=== PATIENT | female | born 2000 | race Hispanic/Latino ===

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

== ENCOUNTER 2021-03-05 02:29 | Inpatient (IN) | payer MEDICAID ==
[2021-03-05] VITALS (16 sets, daily range): BP systolic 94–141; BP diastolic 52–85
[~2021-03-05] VITALS: Ht 160 cm; Wt 74.1 kg
[2021-03-05] MEDS ORDERED: D5 LR IV SOLUTION 1,000 ML IV ONE (02:45)
[2021-03-05] MEDS ORDERED: LIDOCAINE 1% INJ 20 ML 20 ML VIAL INJ PRN (03:15)
[2021-03-05] MEDS ORDERED: MINERAL OIL CONCENTRATE 99.9% 15 ML UDC TOP PRN (03:15)
[2021-03-05] MEDS ORDERED: D5 LR IV SOLUTION 1,000 ML IV SCH (03:15)
[2021-03-05 03:34] LABS: BASOPHILS % (AUTO) 1 % (0-10); EOSINOPHILS % (AUTO) 1 % (0-10); HEMATOCRIT 34 % (35-52); HEMOGLOBIN 11.1 g/dL (11.5-16.0); LYMPHOCYTES # (AUTO) 2.7 10^3/uL (1.0-4.0); LYMPHOCYTES % (AUTO) 39 % (12-44); MEAN CORPUSCULAR HEMOGLOBIN 30 pg (25-34); MEAN CORPUSCULAR HGB CONC 33 g/dL (32-36); MEAN CORPUSCULAR VOLUME 91 fL (80-99); MEAN PLATELET VOLUME 9.6 fL (9.0-12.2); MONOCYTES # (AUTO) 0.5 10^3/uL (0.0-1.0); MONOCYTES % (AUTO) 7 % (0-12); NEUTROPHILS # (AUTO) 3.6 10^3/uL (1.8-7.8); NEUTROPHILS % (AUTO) 51 % (42-75); PLATELET COUNT 338 10^3/uL (130-400)
[2021-03-05] MEDS ORDERED: OXYTOCIN PRE-MIX DRIP 500 ML IV ONE ×2 (03:56→06:49)
[2021-03-05] MEDS ORDERED: LIDOCAINE/EPI 2% 1:200,00 (XYLOCAINE) 20 ML VIAL ONE (05:25)
[2021-03-05] MEDS ORDERED: LIDOCAINE/EPI 2% 1:200,00 (XYLOCAINE) 20 ML VIAL INJ ONE (05:45)
[2021-03-05] MEDS ORDERED: CATHETER FLUSH 10 ML SYR IV SCH ×2 (06:00→14:00)
[2021-03-05] MEDS: OXYTOCIN PRE-MIX DRIP 500 ML IV SCH ×2 (06:21→06:57)
--- NOTE | 2021-03-05 06:40 | History & Physical-OB ---
OB - Chief Complaint & HPI Date/Time Date of Admission: Date of Admission: March 05, 2021 at 02:51 Date seen by a Provider: March 05, 2021 Time Seen by a Provider: 06:02 Chief Complaint/History OB-Reason for Admission/Chief: Onset of Labor Hx : 2 Hx Para: 1 Expected Date of Delivery: March 06, 2021 Gestational Age in Weeks: 39 Gestational Age in Days: 6 Allergies and Home Medications Allergies Coded Allergies: No Known Drug Allergies (Unverified , 09/22/13) Home Medications Ondansetron Hcl 4 Mg Tab, 4 MG PO Q4H Prescribed by: NORRIS BARRAZA on 09/22/132010 Patient Home Medication List Home Medication List Reviewed: Yes OB - History Hx of Present Care: Yes Ultrasounds: Normal mid trimester US Obstetrical Complications: None Medical Complications: None Information Induced Hypertension: No Maternal Gestational Diabetes: No Hemorrhage: No Obstetrical History Hx : 2 Hx Para: 1 Hx # Term Pregnancies: 1 Number of Living Children: 1 Hx Total # of Abortions (Spona: 0 Delivery History Hx Blood Disorders: No Patient Past Medical History N/A Social History/Family History Alcohol Use: Denies Use Recreational Drug Use: No 2nd Hand Smoke Exposure: No Immunizations Hepatitis A: Yes Hepatitis B: Yes Tetanus Booster (TDap): Less than 5yrs Rubella: unknown RPR/VDRL: Negative GBS Status: Negative HBsAG: Negative OB - Admission Exam Physical Exam Vitals: Vital Signs 03/05/21 03/05/21 03:28 05:30 Temp 36.5 Pulse 78 Resp 18 B/P (MAP) 138/75 (96) Pulse Ox 99 O2 Delivery Room Air HEENT: NCAT Heart: Rhythm Normal Lungs: Clear Abdomen: Gravid Extremities: Normal Reflexes: Normal Cervical Dilatation: 8cm Effacement: 100% Station: +1 Membranes: Ruptured Amniotic Fluid: Clear Heart Rate: 140's Accelerations: Accelerations Present Decelerations: Early Decelerations Short Term Variability: Present Crop Research Scientist Variability: Average (6-25) Contractions on Admission: < 5 Minutes Apart Intensity: Firm Labs Laboratory Tests Test 03/05/21 03:20 Range/Units White Blood Count 7.0 4.3-11.0 10^3/uL Red Blood Count 3.76 L 3.80-5.11 10^6/uL Hemoglobin 11.1 L 11.5-16.0 g/dL Hematocrit 34 L 35-52 % Mean Corpuscular Volume 91 80-99 fL Mean Corpuscular Hemoglobin 30 25-34 pg Mean Corpuscular Hemoglobin Concent 33 32-36 g/dL Red Cell Distribution Width 13.5 10.0-14.5 % Platelet Count 338 130-400 10^3/uL Mean Platelet Volume 9.6 9.0-12.2 fL Immature Granulocyte % (Auto) 2 % Neutrophils (%) (Auto) 51 42-75 % Lymphocytes (%) (Auto) 39 12-44 % Monocytes (%) (Auto) 7 0-12 % Eosinophils (%) (Auto) 1 0-10 % Basophils (%) (Auto) 1 0-10 % Neutrophils # (Auto) 3.6 1.8-7.8 10^3/uL Lymphocytes # (Auto) 2.7 1.0-4.0 10^3/uL Monocytes # (Auto) 0.5 0.0-1.0 10^3/uL Eosinophils # (Auto) 0.0 0.0-0.3 10^3/uL Basophils # (Auto) 0.0 0.0-0.1 10^3/uL Immature Granulocyte # (Auto) 0.1 0.0-0.1 10^3/uL OB - Assessment/Plan/Diagnosis Assessment Assessment: active labor Admission Dx Active Labor SROM Third Trimester 39 week gestation Admission Status: Inpatient Order (span 2 midnights) Reason for Inpatient Admission: Labor Plan Other Plan 20 yo @ 39.6 wga here in active labor Plan - Expectant Management - Desires Natural childbirth - Desiree Patient Copy Copies To 1: CHINA CADENA MD, HOLLY R MD March 05, 2021 06:40
--- NOTE | 2021-03-05 06:45 | OB Labor & Delivery Record ---
Vag Delivery Note Vag Delivery Note Date of Delivery: 03/05/21 Preoperative Diagnosis: Deisy Siddiqui is a (20 /Para 2 / 1,Gestational Age (wks)39.6 wga here in active labor Postoperative Diagnosis: Same Surgeon: SURENDRA SALDAÑA Strip Cutter: None Anesthesia: None Delivery Type: @ 0617 Findings: Viable Male infant, apgars 8/9, weight 7#9, 3432 grams Lacerations: None Intact placenta with 3 vessel cord. No nuchal cord, body cord or shoulder dystocia Estimated Blood Loss: 125 ml Complications: None Condition: Stable Description of Procedure: The patient is a 20 year old female who presented in active labor. She was admitted and informed consent was obtained. Her labor course was unremarkable. She progressed to complete dilatation and began to push. She was then set up for delivery. The 's head was delivered atraumatically in the KRYSTYNA position. The shoulders and remainder of the 's body were then delivered without difficulty. Upon delivery, the head was held below the level of the perineum and the mouth and nares were bulb suctioned. The cord was doubly clamped and cut by FOB after 2 min delay and the infant was attended to by the pediatric staff. An intact placenta with 3-vessel cord delivered via Brandin and there was found to be minimal bleeding.~ Vigorous fundal massage was performed and the fundus was found to be firm. IV oxytocin was given. Examination of the vagina and perineum revealed no laceration that require repair. Following the repair, sponge, instrument and needle counts were correct. Mom and baby were both in stable condition in the labor suite. Vitals - Labs Vital Signs - I&O Vital Signs Date Time Temp Pulse Resp B/P (MAP) Pulse Ox O2 Delivery O2 Flow Rate FiO2 03/05/21 05:30 78 18 138/75 (96) 99 03/05/21 04:30 77 18 128/85 (99) 99 03/05/21 03:28 36.5 71 18 98 Room Air 03/05/21 03:19 36.5 71 18 98 Room Air 03/05/21 03:00 36.5 71 18 141/85 (103) 98 Labs Laboratory Tests 03/05/21 03:20: White Blood Count 7.0, Red Blood Count 3.76L, Hemoglobin 11.1L, Hematocrit 34L, Mean Corpuscular Volume 91, Mean Corpuscular Hemoglobin 30, Mean Corpuscular Hemoglobin Concent 33, Red Cell Distribution Width 13.5, Platelet Count 338, Mean Platelet Volume 9.6, Immature Granulocyte % (Auto) 2, Neutrophils (%) (Auto) 51, Lymphocytes (%) (Auto) 39, Monocytes (%) (Auto) 7, Eosinophils (%) (Auto) 1, Basophils (%) (Auto) 1, Neutrophils # (Auto) 3.6, Lymphocytes # (Auto) 2.7, Monocytes # (Auto) 0.5, Eosinophils # (Auto) 0.0, Basophils # (Auto) 0.0, Immature Granulocyte # (Auto) 0.1 SURENDRA SALDAÑA MD March 05, 2021 06:45
[2021-03-05] MEDS ORDERED: WITCH HAZEL(TUCKS) 40 EA JAR TOP PRN (07:00)
[2021-03-05] MEDS ORDERED: TETANUS,DIPTH,PERTUSS P/F (BOOSTRIX) 0.5 ML VIAL IM ONE (07:00)
[2021-03-05] MEDS ORDERED: BENZOCAINE/MENTHOL (DERMOPLAST) 56 ML CAN TP PRN (07:00)
[2021-03-05] MEDS ORDERED: MEASLES,MUMPS,RUBELLA 1 EA INJ SQ ONE (07:00)
[2021-03-05] MEDS ORDERED: IBUPROFEN 600 MG (MOTRIN) TAB PO ONE (07:45)
[2021-03-05] MEDS: IBUPROFEN 600 MG (MOTRIN) TAB PO SCH ×2 (13:18→18:37)
[2021-03-05] MEDS: DOCUSATE SODIUM 100 MG (COLACE) CAP PO SCH ×2 (13:18→20:25)
[2021-03-05] MEDS: ACETAMINOPHEN 500 MG TAB (TYLENOL) PO SCH (20:25)
[2021-03-06] VITALS: BP 108/55
[2021-03-06] MEDS: IBUPROFEN 600 MG (MOTRIN) TAB PO SCH ×3 (01:00→12:40)
[2021-03-06 04:32] VITALS: BP 109/62
[2021-03-06] MEDS: ACETAMINOPHEN 500 MG TAB (TYLENOL) PO SCH (06:17)
[2021-03-06 07:18] LABS: BASOPHILS % (AUTO) 1 % (0-10); EOSINOPHILS # (AUTO) 0.1 10^3/uL (0.0-0.3); EOSINOPHILS % (AUTO) 1 % (0-10); HEMATOCRIT 30 % (35-52); HEMOGLOBIN 9.9 g/dL (11.5-16.0); LYMPHOCYTES # (AUTO) 3.1 10^3/uL (1.0-4.0); LYMPHOCYTES % (AUTO) 36 % (12-44); MEAN CORPUSCULAR HEMOGLOBIN 30 pg (25-34); MEAN CORPUSCULAR HGB CONC 33 g/dL (32-36); MEAN CORPUSCULAR VOLUME 92 fL (80-99); MONOCYTES # (AUTO) 0.8 10^3/uL (0.0-1.0); MONOCYTES % (AUTO) 10 % (0-12); NEUTROPHILS # (AUTO) 4.3 10^3/uL (1.8-7.8); NEUTROPHILS % (AUTO) 50 % (42-75); PLATELET COUNT 275 10^3/uL (130-400); WHITE BLOOD COUNT 8.5 10^3/uL (4.3-11.0)
[2021-03-06 09:25] VITALS: BP 112/57
[2021-03-06] MEDS: DOCUSATE SODIUM 100 MG (COLACE) CAP PO SCH (09:33)
[2021-03-06 10:28] VITALS: BP 112/57
--- NOTE | 2021-03-06 10:33 | Discharge Summary ---
Diagnosis/Chief Complaint Date of Admission March 05, 2021 at 02:51 Date of Discharge Discharge Summary-Simple/Stand Discharge Physical Examination Allergies: Coded Allergies: No Known Drug Allergies (Unverified , 09/22/13) Vitals & I&Os Vital Sign - Last 12Hours Date Time Temp Pulse Resp B/P (MAP) Pulse Ox O2 Delivery O2 Flow Rate FiO2 03/06/21 09:25 36.5 61 16 112/57 (75) 98 Room Air Hospital Course See final discharge diagnosis. Discharge Instructions to patient/family Please see electronic discharge instructions given to patient. Discharge Medications Reviewed and agree with Discharge Medication list on patient's Discharge Instruction sheet SURENDRA SALDAÑA MD March 06, 2021 10:33
[2021-03-06] MEDS ORDERED: DCS100C PO (10:34)
[2021-03-06] MEDS ORDERED: IBUP-844 PO (10:34)
--- NOTE | 2021-03-06 10:46 | Discharge Summary ---
Discharge Inst-[facility] Reconcile Patient Problems Problems Reviewed?: Yes Depart Medications New, Converted or Re-Newed RX: RX on Chart Follow Up/Instructions Goal/Follow Up: [address] Cadena Activity Activity: Activity as Tolerated Nothing Inside Vagina: No Douching, No Tampons Diet Discharge Diet: No Restrictions Symptoms to Report to : Bleeding Excessive, Fever Over 101 Degrees F, Shortness of Breath Copies To 1: CHINA CADENA MD, HOLLY R MD March 06, 2021 10:46
== END 2021-03-06 13:05 | disposition home or self-care (01) | DRG 807 ==
LOC: WSo 02:29 → LDRP 02:30 → WSo 02:50 → LDRP 02:51 → WS 10:40
PROVIDERS: ADMIT Family Medicine; ATTEND Family Medicine
PROC: 10E0XZZ Delivery of Products of Conception, External Approach (ICD-10-PCS; principal; 2021-03-05)
DX: O80 Encounter for full-term uncomplicated delivery (principal); Z37.0 Single live birth; Z3A.39 39 weeks gestation of pregnancy
CPT/HCPCS: 36415; 85025; 86780; 86850; 86900; 86901; 99212

== ENCOUNTER 2023-05-22 21:53 | Emergency (ER) | payer MEDICAID ==
[~2023-05-22] VITALS: Ht 152.4 cm; Wt 72.6 kg
[~2023-05-22 21:53] MED LIST changes: +DOCU-239 PO; +IBUP-844 PO
[2023-05-22 21:57] VITALS: BP 133/85
[2023-05-22 22:16] LABS: BILIRUBIN,URINE NEGATIVE (NEGATIVE); CLARITY,URINE SL CLOUDY; COLOR,URINE YELLOW; GLUCOSE, URINE (UA) NEGATIVE (NEGATIVE); KETONES,URINE TRACE (NEGATIVE); LEUKOCYTE ESTERASE ,URINE 1+ (NEGATIVE); NITRITE,URINE NEGATIVE (NEGATIVE); PH,URINE 6.5 (5-9); PROTEIN,URINE TRACE (NEGATIVE)
--- NOTE | 2023-05-22 22:16 | ED GU-Female ---
General Chief Complaint: Skin/Wound Problems Stated Complaint: INFECTION IN GROIN AREA Source: patient Exam Limitations: no limitations History of Present Illness Date Seen by Provider: May 22, 2023 Time Seen by Provider: 22:06 Initial Comments Patient is a 22-year-old female who presents to the ED for vaginal itching, vaginal redness and swelling and a rash around the groin. Symptoms started about 2 weeks ago. She states she was seen at [facility] and finished a round of Keflex this past Sunday. She took the antibiotic for 7 days. She states she still having the rash around her groin. She reports some vaginal itching and white vaginal discharge without odor. Not necessarily concern for sexual transmitted affection but was okay to get a swab. She reports burning with urination and itching with urination. Mild pain with sexual intercourse. She is currently 36 weeks . No vaginal bleeding or abdominal pain. She denies fever, chills, nausea, vomiting, diarrhea. Patient did use vaginal itch cream vaginal still without much improvement. Allergies and Home Medications Allergies Coded Allergies: No Known Drug Allergies (Unverified , 09/22/13) Patient Home Medication List Home Medication List Reviewed: Yes Clotrimazole (Clotrimazole) 1 % Cream..g., 15 GM TP BID Prescribed by: ELISSA CABRERA on 05/22/232232 Docusate Sodium (Dok) 100 Mg Capsule, 100 MG PO BID Prescribed by: SURENDRA SALDAÑA on 03/06/21 1034 Ibuprofen (Ibu) 600 Mg Tablet, 600 MG PO Q6HR Prescribed by: SURENDRA SALDAÑA on 03/06/21 1034 Review of Systems Review of Systems Constitutional: No chills, No diaphoresis, No malaise, No weakness EENTM: No hearing loss, No ear pain, No blurred vision Respiratory: No cough, No dyspnea on exertion Cardiovascular: No chest pain Gastrointestinal: No abdominal pain, No diarrhea, No nausea, No vomiting Genitourinary: burning, discharge; denies dysuria Musculoskeletal: No back pain, No joint pain Skin: No change in color, No change in hair/nails All Other Systemes Reviewed Negative Unless Noted: Yes Past Hrolnho-Raortq-Tbfwgg Hx Immunizations Up To Date Tetanus Booster (TDap): Less than 5yrs Past Medical History Reproductive Disorders: No Physical Exam Vital Signs Vital Signs - First Documented 05/22/23 21:57 Temp 36.0 Pulse 88 Resp 17 B/P (MAP) 133/85 (101) O2 Delivery Room Air Capillary Refill : Height, Weight, BMI Height: '" Weight: 120lbs. oz. 54.782103pj; 28.94 BMI Method:Stated General Appearance: WD/WN, no apparent distress HEENT: PERRL/EOMI, normal ENT inspection, TMs normal, pharynx normal Neck: non-tender, full range of motion, supple, normal inspection Cardiovascular: regular rate, rhythm, no edema, no gallop, no JVD Respiratory: chest non-tender, lungs clear, normal breath sounds, no respiratory distress, no accessory muscle use Gastrointestinal: normal bowel sounds, non tender, soft, no organomegaly Genital/Rectal: other (Erythematous papular rash to right groin. Mild purulent drainage from the vaginal area without odor. Vaginal swelling.) Back: normal inspection, no CVA tenderness, no vertebral tenderness Extremities: normal range of motion, non-tender, normal inspection, no pedal edema Neurologic/Psychiatric: hotel registration clerk II-XII nml as tested, no motor/sensory deficits, alert, normal mood/affect, oriented x 3 Skin: warm/dry Progress/Results/Core Measures Suspected Sepsis SIRS Temperature: Pulse: Respiratory Rate: Blood Pressure / Mean: Results/Orders Lab Results Laboratory Tests Test 05/22/23 22:08 Range/Units Urine Color YELLOW Urine Clarity SL CLOUDY Urine pH 6.5 5-9 Urine Specific Daykin 1.015 L 1.016-1.022 Urine Protein TRACE H NEGATIVE Urine Glucose (UA) NEGATIVE NEGATIVE Urine Ketones TRACE H NEGATIVE Urine Nitrite NEGATIVE NEGATIVE Urine Bilirubin NEGATIVE NEGATIVE Urine Urobilinogen 1.0 < = 1.0 MG/DL Urine Leukocyte Esterase 1+ H NEGATIVE Urine RBC (Auto) 2+ H NEGATIVE Urine RBC 5-10 H /HPF Urine WBC 0-2 /HPF Urine Squamous Epithelial Cells 5-10 /HPF Urine Crystals PRESENT H /LPF Urine Calcium Oxalate Crystals FEW H /LPF Urine Bacteria TRACE /HPF Urine Casts NONE /LPF Urine Mucus SMALL H /LPF Urine Culture Indicated NO My Orders Orders - DAVID MEJIA Ua Culture If Indicated (05/22/23 22:03) Wet Prep (7/25/23 22:03) Neisseria Gonorrhea Swab (05/22/23 22:04) Chlamydia Trachomatis Swab (05/22/23 22:04) Vital Signs/I&O Capillary Refill : Departure Communication (PCP) Reviewed previous ER visits, H&P, lab testing. Differential diagnoses UTI, vaginal yeast, STD, chaffing. Currently 36 weeks . No vaginal bleeding. She reports burning with intercourse and vaginal itching. On exam she does have some erythematous papules to the right groin, inner thigh with red bumps to the left inner thigh. Concern for yeast versus chaffing. Very minimal vaginal discharge. Performed pelvic exam with swabs. Chlamydia and gonorrhea currently pending. Microbiology was negative for trichomonas, clue cells or yeast. Urinalysis questionable for UTI but no culture was recommended. Leukocytes +1, red blood cells noted. She is sexually active with 1 partner. She does not want to be treated prophylactically for STD. She has no abdominal tenderness. cardiac activity 145 bpm. She does not appear in acute distress. Will discharge with clotrimazole topical if related to yeast as some of the presentation is. Other etiologies would be chaffing. discussed Monistat chaffing cream as well. Avoid any fragrance or soaps. She recently finished Keflex with no improvement. Unlikely UTI but recommend recheck with your PCP. Concerning for yeast. Discussed hormonal changes during her . No odor or clue cells suggesting bacterial vaginosis. Recommend following up with your tractor operator laser leveling in the next 2 or 3 days for reevaluation. If any worsening symptoms return back to ED. Impression Primary Impression: Vaginal itching Disposition: 01 HOME, SELF-CARE Condition: Stable Departure-Patient Inst. Decision time for Depature: 22:29 Referrals: CHINA CADENA MD (PCP/Family) Primary Care Physician Patient Instructions: Vulvar itching Add. Discharge Instructions: Recommend taking topical antifungal. May consider getting Monistat care chafing relief. Recommend following up with your tractor operator laser leveling for further evaluation. All discharge instructions reviewed with patient and/or family. Voiced understanding. Scripts Clotrimazole (Clotrimazole) 1 % Cream..g. 15 GM TP BID, #1 EA 1 Refill Prov: DAVID MEJIA 05/22/23 DAVID MEJIA May 22, 2023 22:16
[2023-05-22] MEDS ORDERED: CLOT15CR28 TP (22:33)
[2023-05-22 22:52] LABS: BACTERIA,URINE TRACE /HPF; WBC,URINE 0-2 /HPF
[2023-05-22 22:53] LABS: CALCIUM OXALATE CRYSTALS,UR FEW /LPF
== END 2023-05-22 23:08 | disposition home or self-care (01) ==
LOC: EDUNIT# 21:53 → ER 21:54
DX: O23.593 Infection of other part of genital tract in pregnancy, third trimester (principal); N89.8 Other specified noninflammatory disorders of vagina; L53.9 Erythematous condition, unspecified; Z3A.36 36 weeks gestation of pregnancy; Z28.310 Unvaccinated for COVID-19
CPT/HCPCS: 36415; 81000; 87210; 87491; 87591; 99284

== ENCOUNTER 2023-06-07 06:27 | Inpatient (IN) | payer MEDICAID ==
[2023-06-07] VITALS (27 sets, daily range): BP systolic 98–150; BP diastolic 55–79
[~2023-06-07] VITALS: Ht 152.4 cm; Wt 78.4 kg
[~2023-06-07 06:27] MED LIST changes: +CLOT15CR28 TP
--- OUTSIDE RECORDS SUMMARY | 2023-06-07 06:30 | XMS REPORT | Clinical Summary ---
Author Author [facility] Organization [facility] Address Unknown Phone Unavailable Care Team Providers Care Respiratory Physician Name Role Phone No Pcp, Na PCP Unavailable Source Comments Some departments are not documenting in the electronic medical record. If you d o not see the information that you expected, contact Release of Information in [facility] [employer] Information Management department at [phone] for further assistan ce in locating additional records.[facility] Allergies No known active allergies Medications End Date Status Medication Sig Dispensed Refills Start Date Active VIT Take by 0 CALC,IRON,FOLIC ( mouth. VITAMIN PO) Active acetaminophen (TYLENOL) Take 325 mg 0 325 mg tablet by mouth every 4 hours as needed for Pain. Active ibuprofen (ADVIL) 200 mg Take 200 mg 0 tablet by mouth every 6 hours as needed for Pain. Take with food. Active simethicone (MYLICON) 80 Chew 1 tablet 30 tablet 0 mg chew tablet by mouth 8 every 6 hours as needed for Flatulence. Active lanolin (FPK-Y-NCBQDQ) Apply 56 g 3 topical cream topically to 8 affected area as Needed. Active docusate (COLACE) 100 mg Take 1 180 capsule 3 0 capsule capsule by 8 mouth twice daily. Active Problems Problem Noted Date Diagnosed Date Spontaneous vaginal delivery 01/09/2018 Resolved Problems Resolved Date Problem Noted Date Diagnosed Date 01/09/2018 01/06/2018 01/09/2018 Anomaly of heart affecting curtis , 11/09/2017 antepartum Last Assessment & Plan: Formatting of t his note might be different from the original. I saw Deisy Siddiqui for a echocardiogram. 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 The ventricular septal defect connecting th e LV and RV outflow chamber appears unobstructed. I spent 30 minutes with Deisy Siddiqui and her mother di scussing the initial results of the echocardiogram. I told Deisy Siddiqui that some of the results may be modifie d by the more detailed review of the study and the pr eparation of the final report. Based on my initial asses sment I gave Deisy Siddiqui the following recommenda tions and guidance: 1. Delivery: at term (>38 weeks) at 2. Post- care:NICU observation, pr obably will not require PGE1 or other medical intervent ion immediately after 3. Anticipated surgery or intervention: will ultimately need single ventricle repair (Fontan) 4. Follow-up: 2-3 weeks to reassess the pulmonary arteries. Immunizations Name Administration Dates Next Due DTaP Vaccine 06/22/2003, 12/14/1999, , 01/17/1999, 1998 Flu Vaccine =>6 Months 01/07/2018 (Deferred: Patie nt Refused) Quadrivalent PF HIB Vaccine 12/14/1999, 02/21/1999, , 1998 HPV Vaccine 4 Valent IM 11/26/2013, 12/24/2012 (Gardasil) Hepatitis A vaccine Ped 07/28/2014, 11/26/2013 Adol 2 dose IM Hepatitis B Vaccine 01/17/1999, 1998, 08/1998 Ped/Adol 3 Dose IM IPV 03/11/2003, 02/21/1999, , 1998 MMR Vaccine 03/11/2003, 08/15/1999 Meningococcal Conjug 11/26/2013, 12/24/2012 Vaccine IM (MenACWY-D)(Menactra) Rotavirus vaccine 02/21/1999, 01/17/1999, monovalent, 2 dose regimen (Rotarix) Tdap Vaccine 11/19/2017, 01/31/2010 Varicella Vaccine Live 01/31/2010, 07/17/2007, Family History Medical History Relation Name Comments Heart defect Brother "Holes in heart madalyn t closed on their own" Heart Surgery Father Transplant due to C hagras disease Cancer-Uterine Maternal Grandmother Relation Name Status Comments Brother Father Maternal Grandmother Social History Date Tobacco Use Types Packs/Day Years Used Smoking Tobacco: Never Smokeless Tobacco: Never Date Recorded Sex and Gender Information Value Sex Assigned at Not on file Gender Identity Not on file Sexual Orientation Not on file Obstetrics History Para Term AB IAB SAB Ectopic Multiple Living Live B irths 1 1 1 1 0 1 1 2 Date GA Total Labor Labor/2nd/3rd Weight Sex Delivery Anes PTL Analy A1 A5 Name Clin Outcome SAB SAB 01/07/2018 39w0d M Vag-Spont None N Living 8 9 SIDDIQUI,BABY BOY Kelly Grady MD Term Complications: None Delivery Location: [facility]) Last Filed Vital Signs Reading Time Taken Comments Vital Sign 108/62 01/09/2018 8:38 AM CDT Blood Pressure 68 01/09/2018 8:38 AM CDT Pulse 36.6 C (97.9 F) 01/09/2018 8:38 AM CDT Temperature - - Respiratory Rate 100% 01/09/2018 8:38 AM CDT Oxygen Saturation - - Inhaled Oxygen Concentration 72.1 kg (159 lb) 01/06/2018 10:36 PM CDT Weight 152.4 cm (5') 01/06/2018 10:36 PM CDT Height 31.05 01/06/2018 10:36 PM CDT Body Mass Index Plan of Treatment Health Maintenance Due Date Last Done Comments COVID-19 VACCINE (#1) 01/05/1999 HEPATITIS C SCREENING 2016 PHYSICAL (COMPREHENSIVE) 2016 EXAM CHLAMYDIA SCREENING 18-24 11/19/2018 11/19/2017 YEARS CERVICAL CANCER SCREENING 2019 DEPRESSION SCREENING 10/29/2022 INFLUENZA VACCINE (#1) 2023 DTAP/TDAP VACCINES (8 - 11/19/2027 11/19/2017, Td or Tdap) 01/31/2010, 06/22/2003, Additional history exists HPV VACCINES Completed 11/26/2013, 12/24/2012 HIV SCREENING Completed 11/08/2017 PNEUMOCOCCAL VACCINE 0-64 Aged Out No longer el igible based on patient's age to YRS complete this topic Results Not on filefrom Last 3 Months Insurance Type Payer Benefit Subscriber ID Effective Phone Address Plan / Dates Group Indemnity [facility] [id number] 2020-P [phone] CHOICE/CHO resent ICE PLUS Advance Directives Date Inactivated Comments Code Status Date Activated 01/06/2018 11:29 PM Full Code 01/06/2018 10:57 PM Comments Question Answer Provider has No, discussion not necessar y based on Dx discussed Code Status w/Patient or Family? Care Teams Start Date End Date Respiratory Physician Relationship Specialty 10/05/17 No Pcp, Na PCP - General
[2023-06-07] MEDS ORDERED: D5 LR 1,000 ML IV SOLN 1,000 ML IV SCH (06:45)
[2023-06-07] MEDS ORDERED: MINERAL OIL 30 ML UDC TOP PRN (06:45)
--- NOTE | 2023-06-07 06:45 | History & Physical-OB ---
OB - Chief Complaint & HPI Date/Time Date of Admission: Date of Admission: Jun 07, 2023 at 06:27 Date seen by a Provider: Jun 07, 2023 Time Seen by a Provider: 06:50 Chief Complaint/History OB-Reason for Admission/Chief: Induction of Labor Hx : 3 Hx Para: 2 Expected Date of Delivery: Jun 09, 2023 Gestational Age in Weeks: 39 Gestational Age in Days: 5 Admission Nurse Assessment Rev: Yes History of Labs GBS negative Allergies and Home Medications Allergies Coded Allergies: No Known Drug Allergies (Unverified , 09/22/13) Patient Home Medication List Home Medication List Reviewed: Yes Clotrimazole (Clotrimazole) 1 % Cream..g., 15 GM TP BID Prescribed by: ELISSA CABRERA on 05/22/232232 Docusate Sodium (Dok) 100 Mg Capsule, 100 MG PO BID Prescribed by: SURENDRA SALDAÑA on 03/06/21 1034 Ibuprofen (Ibu) 600 Mg Tablet, 600 MG PO Q6HR Prescribed by: SURENDRA SALDAÑA on 03/06/21 1034 OB - History Hx of Present Care: Yes Ultrasounds: Normal mid trimester US Obstetrical Complications: None Medical Complications: None Delivery History Hx Blood Disorders: No Patient Past Medical History N/A Social History/Family History 2nd Hand Smoke Exposure: No Immunizations Hepatitis A: Yes Hepatitis B: Yes Tetanus Booster (TDap): Less than 5yrs OB - Admission Exam Physical Exam HEENT: Moist Membranes Heart: Rhythm Normal Lungs: Clear Abdomen: Gravid Cervical Dilatation: 2cm Effacement: 75% Station: -3 Membranes: Intact Heart Rate: 130's Accelerations: Accelerations Present Short Term Variability: Present Front Desk Associate Variability: Average (6-25) Contractions on Admission: >10 Minutes Apart Mcintyre Scoring Tool (Modified) Dilation (cm): 1-2cm (1) Effacement (%): 51-79% (2) Descent/Station: -3 (0) Cervix Consistency: Medium(1) Cervix Position: Middle/Mid-Position (1) Add 1 point for: Each previous vaginal delivery (1) Mcintyre Score: 7 OB - Assessment/Plan/Diagnosis Assessment Assessment: induction of labor Admission Dx 1. IUP at term 39w5d Admission Status: Inpatient Order (span 2 midnights) Reason for Inpatient Admission: L&D Plan Plan: Induction Induction Method: CHINA LIZAMA MD Jun 07, 2023 06:45
[2023-06-07 07:07] LABS: BASOPHILS % (AUTO) 0 % (0-10); EOSINOPHILS # (AUTO) 0.1 10^3/uL (0.0-0.3); EOSINOPHILS % (AUTO) 1 % (0-10); HEMATOCRIT 34 % (35-52); HEMOGLOBIN 11.1 g/dL (11.5-16.0); LYMPHOCYTES # (AUTO) 2.8 10^3/uL (1.0-4.0); LYMPHOCYTES % (AUTO) 41 % (12-44); MEAN CORPUSCULAR HEMOGLOBIN 30 pg (25-34); MEAN CORPUSCULAR HGB CONC 33 g/dL (32-36); MEAN CORPUSCULAR VOLUME 90 fL (80-99); MEAN PLATELET VOLUME 9.4 fL (9.0-12.2); MONOCYTES # (AUTO) 0.6 10^3/uL (0.0-1.0); MONOCYTES % (AUTO) 9 % (0-12); NEUTROPHILS # (AUTO) 3.2 10^3/uL (1.8-7.8); NEUTROPHILS % (AUTO) 47 % (42-75); PLATELET COUNT 321 10^3/uL (130-400); WHITE BLOOD COUNT 6.9 10^3/uL (4.3-11.0)
[2023-06-07 07:31] LABS: CLARITY,URINE CLEAR; COLOR,URINE YELLOW; GLUCOSE, URINE (UA) NEGATIVE (NEGATIVE); PROTEIN,URINE NEGATIVE (NEGATIVE)
[2023-06-07 07:32] LABS: BILIRUBIN,URINE NEGATIVE (NEGATIVE); KETONES,URINE NEGATIVE (NEGATIVE); NITRITE,URINE NEGATIVE (NEGATIVE)
[2023-06-07 07:33] LABS: LEUKOCYTE ESTERASE ,URINE 2+ (NEGATIVE)
[2023-06-07 07:39] LABS: RBC,URINE RARE /HPF
[2023-06-07 07:40] LABS: BACTERIA,URINE FEW /HPF; SQUAMOUS EPITHELIAL CELL,UR 0-2 /HPF
[2023-06-07] MEDS ORDERED: OXYTOCIN PRE-MIX DRIP 500 ML IV SCH ×2 (07:45→12:30)
--- NOTE | 2023-06-07 12:21 | OB Labor & Delivery Record ---
L&D History Date of Service Date of Service: Jun 07, 2023 History Expected Date of Delivery: Jun 09, 2023 Gestational Age in Weeks: 39 Hx : 3 Hx Para: 3 Complications Events: Routine care Operative Indications (Cesarea: N/A-Vaginal Delivery Intrapartal Events: None L&D Stage1 Stage One Onset of Labor - Date: Jun 07, 2023 Onset of Labor - Time: 06:59 Monitors and Tracing Monitor Mode: Internal Heart Rate: 135 Monitor Accelerations: Uniform Monitor Decelerations: Variable Station: -1 Short Term Variability: Present Presentation: Vertex Vital Signs VS - Last 72 Hours, by Label 06/07/23 06/07/23 06/07/23 06/07/23 07:22 07:25 07:30 07:35 Temp 36.5 36.5 Pulse 75 75 63 68 Resp 16 16 B/P (MAP) 119/56 (77) Pulse Ox 98 99 98 98 O2 Delivery Room Air Room Air Room Air Room Air 06/07/23 06/07/23 06/07/23 06/07/23 08:04 08:19 08:35 08:38 Temp 36.7 Pulse 70 74 77 Resp 16 B/P (MAP) 119/67 (84) 114/79 (91) 109/67 (81) Pulse Ox 97 98 99 O2 Delivery Room Air Room Air Room Air 06/07/23 06/07/23 06/07/23 06/07/23 08:50 09:08 09:21 09:37 Temp 36.5 Pulse 70 77 61 78 Resp 16 B/P (MAP) 109/58 (75) 129/68 (88) 113/57 (75) 150/73 (98) Pulse Ox 99 O2 Delivery Room Air 06/07/23 06/07/23 06/07/23 06/07/23 09:51 10:08 10:20 10:34 Pulse 71 87 71 82 B/P (MAP) 125/73 (90) 117/64 (81) 117/61 (79) 117/62 (80) Signs of Distress by FHT Signs of Distress no Rupture of Membranes Spontaneous Ruture of Membrane: No Amniotic Membrane Rupture Time: 0659 Amniotic Membrane Fluid Desc.: Clear Vaginal Bleeding Description: None L&D Stage2 Stage Two Stage II Date: Jun 07, 2023 Stage II Time: 12:02 Monitors and Tracing Monitor Mode: Internal Heart Rate: 135 Monitor Accelerations: Uniform Monitor Decelerations: Variable [place] Variability: Average (6-10) Short Term Variability: Present Position: Left Occiput Anterior Presentation: Vertex Signs of Distress by FHT Signs of Distress no Cord Descript/Complications Cord Vessel Description: 3 Vessels Delivery Type Infant Delivery Method: Spontaneous Vaginal Anterior Shoulder: Left Episiotomy/Perineal Laceration Laceraction(s)/Extensions: No Condition of Infant Delivery 1 minute Comment: 8 5 minute Comment: 9 Condition of Infant Condition of Infant: Living Exam: No Observed Abnormalities Resuscitation Resuscitation: N/A - Spontaneous Resp L&D Stage3 Stage Three Stage III Date: Jun 07, 2023 Stage III Time: 12:07 Pictocin Pitocin Administration mu/min: 6 Pitocin ml/hr: 6 Pitocin Administration Comment: 0802 PITOCIN PROTOCOL INITIATED PER DR. CADENA. Placenta Delivery Placenta Delivery: Spontaneous Delivery Summary Summary Estimated blood loss (mL): 150 Condition of Delivery Examined: Cervix Examined Post Hemorrhage: No Intervention Required none CHINA CADENA MD Jun 07, 2023 12:21
[2023-06-07] MEDS ORDERED: Tetanus/Diphtheria/Pertussis (Acell) ADULT Vaccine 0.5 ML IM ONE (12:30)
[2023-06-07] MEDS ORDERED: BENZOCAINE/MENTHOL (DERMOPLAST) 56 ML CAN TP PRN (12:30)
[2023-06-07] MEDS ORDERED: MEASLES, MUMPS, RUBELLA VACCINE (MMR) SQ ONE (12:30)
[2023-06-07] MEDS ORDERED: NALOXONE 0.4 MG/ML 1 ML (NARCAN) VIAL IV PRN (12:30)
[2023-06-07] MEDS ORDERED: WITCH HAZEL(TUCKS) 40 EA JAR TOP PRN (12:30)
[2023-06-07] MEDS: IBUPROFEN 600 MG TABLET PO SCH ×2 (12:54→20:36)
[2023-06-07] MEDS: ACETAMINOPHEN 500 MG TABLET PO SCH ×2 (12:55→20:36)
[2023-06-07] MEDS ORDERED: CATHETER FLUSH 10 ML SYR IV SCH (14:00)
[2023-06-07] MEDS: DOCUSATE SODIUM 100 MG CAPSULE PO SCH (20:37)
[2023-06-08 00:30] VITALS: BP 96/54
[2023-06-08] MEDS: IBUPROFEN 600 MG TABLET PO SCH ×2 (03:05→09:23)
[2023-06-08 03:06] VITALS: BP 104/72
[2023-06-08] MEDS: ACETAMINOPHEN 500 MG TABLET PO SCH ×2 (03:06→09:23)
[2023-06-08 05:27] LABS: BASOPHILS % (AUTO) 0 % (0-10); EOSINOPHILS # (AUTO) 0.1 10^3/uL (0.0-0.3); EOSINOPHILS % (AUTO) 1 % (0-10); HEMATOCRIT 31 % (35-52); HEMOGLOBIN 10.3 g/dL (11.5-16.0); LYMPHOCYTES # (AUTO) 3.1 10^3/uL (1.0-4.0); LYMPHOCYTES % (AUTO) 32 % (12-44); MEAN CORPUSCULAR HEMOGLOBIN 30 pg (25-34); MEAN CORPUSCULAR HGB CONC 33 g/dL (32-36); MEAN CORPUSCULAR VOLUME 92 fL (80-99); MEAN PLATELET VOLUME 9.5 fL (9.0-12.2); MONOCYTES # (AUTO) 0.8 10^3/uL (0.0-1.0); MONOCYTES % (AUTO) 8 % (0-12); NEUTROPHILS # (AUTO) 5.5 10^3/uL (1.8-7.8); NEUTROPHILS % (AUTO) 57 % (42-75); PLATELET COUNT 240 10^3/uL (130-400); WHITE BLOOD COUNT 9.7 10^3/uL (4.3-11.0)
--- NOTE | 2023-06-08 07:09 | Discharge Summary ---
Diagnosis/Chief Complaint Date of Admission Jun 07, 2023 at 06:27 Date of Discharge June 08, 2023 Admission Diagnosis Admission Diagnosis 1. Intrauterine at 39 weeks gestation Discharge Diagnosis 1. Intrauterine at 39 weeks gestation Chief Complaint/HPI Chief Complaint/HPI 22-year-old 3 now term 3 who initially presented to labor and delivery during the morning of June 07, 2023 for induction of labor. She was noted to be at 39 weeks 5 days gestation based upon an EDC of June 09, 2023. Her group B strep status performed on her perineum at 36 weeks was negative. Discharge Summary-OBS Procedures 1. Spontaneous vaginal delivery Discharge Physical Examination Allergies: Coded Allergies: No Known Drug Allergies (Unverified , 09/22/13) Vitals & I&Os Intake and Output 06/08/23 00:00 Intake Total 1300 ml Balance 1300 ml Vital Sign - Last 12Hours Date Time Temp Pulse Resp B/P (MAP) Pulse Ox O2 Delivery O2 Flow Rate FiO2 06/08/23 03:06 36.0 90 16 104/72 (83) 99 Room Air General Appearance: No Acute Distress Respiratory: Clear to Auscultation Cardiovascular: Regular Rate Abdominal: Soft (With uterus firm) Psych/Mental Status: Mental Status NL Hospital Course Was the Problem List Reviewed?: Yes following admission she underwent routine antepartum care orders. She underwent amniotomy in the morning of June 07, 2023 at 06 59. Fluid was noted to be clear at that time. She developed a contraction pattern requiring low-dose Pitocin augmentation. She did not require or request epidural or any pain medications. Ultimately she went on to completion and delivered a term viable male with Apgars of 8 at 1 minute and 9 at 5 minutes. Delivery occurred at 1202 on June 07, 2023. Following delivery she underwent routine care orders. She had no complications during the remainder of hospital stay. She was noted to ambulate without any shortness of breath or leg pain. Her hemoglobin in the morning of June 08 was 10.3 compared to admission of 11.1. She was without any lightheadedness. She was eager for dismissal during the afternoon of June 09, 2023. She will follow-up with myself in 6 weeks at [facility]. Labs Laboratory Tests 06/08/23 05:18: White Blood Count 9.7, Red Blood Count 3.41L, Hemoglobin 10.3L, Hematocrit 31L, Mean Corpuscular Volume 92, Mean Corpuscular Hemoglobin 30, Mean Corpuscular Hemoglobin Concent 33, Red Cell Distribution Width 14.2, Platelet Count 240, Mean Platelet Volume 9.5, Immature Granulocyte % (Auto) 1, Neutrophils (%) (Auto) 57, Lymphocytes (%) (Auto) 32, Monocytes (%) (Auto) 8, Eosinophils (%) (Auto) 1, Basophils (%) (Auto) 0, Neutrophils # (Auto) 5.5, Lymphocytes # (Auto) 3.1, Monocytes # (Auto) 0.8, Eosinophils # (Auto) 0.1, Basophils # (Auto) 0.0, Immature Granulocyte # (Auto) 0.1 Discharge Instructions to patient/family Please see electronic discharge instructions given to patient. Discharge Medications Reviewed and agree with Discharge Medication list on patient's Discharge Instruction sheet CHINA CADENA MD Jun 08, 2023 07:09
--- NOTE | 2023-06-08 07:11 | Discharge Inst-Women's Service ---
Discharge Inst-Women's Serv Depart Medication/Instructions New, Converted or Re-Newed RX: Other Instructions May take ibuprofen [id number] 200 mg tablets and take 2 or 3 every 6 hours if needed for cramps. Problems Reviewed?: Yes Consults/Follow Up Additional Follow Up: Yes (Dr. Cadena in 6 weeks at [facility]) Activity Driving Instructions: No Driving for 1 Week Nothing Inside Vagina: No [place] (For 6 weeks) Diet Discharge Diet: Regular Diet Return to The Hospital For: As below Symptoms to Report to : Bleeding Excessive, Fever Over 101 Degrees F, Vaginal Discharge Foul For Any Problems or Questions: Contact Your Physician CHINA CADENA MD Jun 08, 2023 07:11
[2023-06-08] MEDS: DOCUSATE SODIUM 100 MG CAPSULE PO SCH (09:23)
[2023-06-08 09:25] VITALS: BP 114/69
[2023-06-08 14:50] VITALS: BP 114/69
== END 2023-06-08 15:20 | disposition home or self-care (01) | DRG 807 ==
LOC: LDRP 06:27
PROVIDERS: ADMIT Family Medicine; ATTEND Family Medicine
PROC: 10E0XZZ Delivery of Products of Conception, External Approach (ICD-10-PCS; principal; 2023-06-07)
PROC: 10907ZC Drainage of Amniotic Fluid, Therapeutic from Products of Conception, Via Natural or Artificial Opening (ICD-10-PCS; 2023-06-07)
DX: O80 Encounter for full-term uncomplicated delivery (principal); Z37.0 Single live birth; Z3A.39 39 weeks gestation of pregnancy; Z28.310 Unvaccinated for COVID-19
CPT/HCPCS: 36415; 81000; 85025; 86780; 86850; 86900; 86901; 87088